=== PATIENT | female | born 1980 | race Two or more races ===

== ENCOUNTER 2025-04-15 11:08 | Emergency (ER) | payer OTHER ==
[~2025-04-15] VITALS: Ht 165.1 cm; Wt 154.2 kg
[2025-04-15] MEDS ORDERED: SYNTHROID175 MCG PO (11:39)
[2025-04-15 13:53] LABS: BASO % 0.4 % (0.1-1.2); EOS # 0.22 (0.04-0.54); EOS % 2.0 % (0.7-7.0); LYMPH # 2.53 (1.18-3.74); LYMPH % 23.0 % (19.3-53.1); MEAN PLATELET VOLUME 10.00 fl (9.4-12.4); MONO # 0.74 (0.24-0.82); MONO % 6.7 % (4.7-12.5); NEUT # 7.45 (1.56-6.13); NEUT % 67.6 % (34.0-71.1); RED CELL DISTRIBUTION WIDTH 20.7 % (11.6-14.4)
[2025-04-15 14:20] LABS: ALT/SGPT 21.0 U/L (12-78); AST/SGOT 12.0 U/L (15-37); BILIRUBIN TOTAL 0.28 mg/dL (0.3-1.2); BUN CREA RATIO 19.0 (7.0-25.0); CREATININE SERUM 0.68 mg/dL (0.55-1.02); GFR 94.43; GLOBULINA 4.9 G/DL (2.4-3.5); GLUCOSE FASTING 107.0 mg/dL (65-100); OSMOLALITY SERUM 280.0 MOSM/KG (275-295)
== END 2025-04-15 16:53 | disposition home or self-care (01) ==
LOC: ER 11:08
PROVIDERS: Emergency Medicine
DX: D64.89 Other specified anemias (principal); N93.8 Other specified abnormal uterine and vaginal bleeding; Z91.013 Allergy to seafood; Z85.850 Personal history of malignant neoplasm of thyroid; D25.9 Leiomyoma of uterus, unspecified